=== PATIENT | male | born 1945 | race Caucasian/White ===

== ENCOUNTER 2023-01-23 22:11 | Emergency (ER) | payer MEDICARE, SELFPAY ==
--- NOTE | ~2023-01-23 | CT_ITS ---
Non-contrast CT scan of the Abdomen and Pelvis Clinical indication: Flank pain, hematuria Technique: 2.5 mm axial scans were obtained through the abdomen and pelvis without intravenous or or al contrast. Dose reduction technique was used on this scan by utilizing automated exposure control a nd iterative reconstruction technique. The dose-length product (DLP) was 522.97 mGy-cm. Findings: Images through the lung bases reveal no abnormalities. There is no evidence of renal or ureteral calculi. The kidneys and the ureters are nondilated. Bilate ral renal cysts are present. The liver, spleen, pancreas, and adrenals appear normal. Calcified gallstone present. There is no aor tic aneurysm. There is no evidence of bowel obstruction. Images through the pelvis were performed. There is no evidence of ascites or lymphadenopathy. Urinary bladder unremarkable. No pelvic mass evident. Impression: Cholelithiasis. No renal, ureteral, or bladder stone. No hydronephrosis. Multiple bilateral renal cysts. Reviewed, dictated and finalized at [facility]. Impression: Cholelithiasis. No renal, ureteral, or bladder stone. No hydronephrosis. Multiple bilateral renal cysts.
[2023-01-23 22:14] VITALS: BP 146/86; PULSE 82; RESP 17; TEMP 37.7; O2SAT 93
[2023-01-23 22:37] LABS: Basophils Percent Auto 0.3 % (0.2-1.2); Eosinophils Absolute Auto 0.1 K/mm3 (0-0.3); Eosinophils Percent Auto 0.6 % (0-4.4); Hematocrit 43.7 % (42.0-52.0); Hemoglobin 14.9 g/dL (14.0-18.0); Immature Granulocyte Absolute 0.03 K/mm3 (0.00-0.031); Immature Granulocyte Percent A 0.3 % (0-0.5); Lymphocytes Absolute Auto 1.05 K/mm3 (0.9-3.2); Lymphocytes Percent Auto 9.7 % (18.3-44.2); Mean Corpuscular HGB Conc 34.1 g/dl (32-36); Mean Corpuscular Hemoglobin 31.2 pg (26-34); Mean Corpuscular Volume 91.4 fl (80-100); Mean Platelet Volume 9.8 fl (7.4-10.4); Monocytes Percent Auto 9.6 % (2.6-8.5); Neutrophils Absolute Auto 8.6 K/mm3 (1.3-6.7); Neutrophils Percent Auto 79.5 % (45.5-73.1); Platelet Count Result 172 k/mm3 (150-375); Red Blood Count 4.78 M/mm3 (4.6-6.20); Red Cell Distribution Width 12.9 % (11.5-14.5); White Blood Count 10.8 K/mm3 (4.5-10.0)
[2023-01-23 22:48] LABS: Alanine Aminotransferase 17 U/L (6-50); Albumin Level 4.5 g/dL (3.5-5.1); Alkaline Phosphatase 95 U/L (38-126); Anion Gap 9 mmol/L (8-16); Aspartate Amino Transferase 40 U/L (17-59); Bilirubin,Total 0.8 mg/dL (0.2-1.3); Blood Urea Nitrogen 24 mg/dL (9-20); Calcium 8.9 mg/dL (8.4-10.2); Carbon Dioxide 29 mmol/L (22-30); Chloride 102 mmol/L (98-107); Estimated CRCL calculation 59 ml/min; Estimated Glomerular Filt Rate > 60; Glucose 107 mg/dL (65-110); Potassium 3.1 mmol/L (3.4-5.0); Sodium 140 mmol/L (137-145)
[2023-01-23 22:55] LABS: Appearance Urine Turbid (Clear); Bacteria Urine 1+ /hpf; Bilirubin Urine 1+ (Negative); Blood Urine 2+ (Negative); Color Urine Red (Yellow); Glucose Urine UA Negative (Negative); Ketones Urine Negative (Negative); Leukocyte Esterase Ur 3+ LEU/UL (Negative); Nitrate Urine Positive (Negative); Non Pathogenic Casts 0-2; Protein Urine 2+ mg/dL (Negative); RBC Urine >100 /hpf (0-2); Specific Grav Ur 1.022 (1.001-1.035); Squamous Epithelial Cell Urine Few /hpf (Few); Urobilinogen Urine 0.2 mg/dL (<2.0); WBC Urine >100 /hpf
[2023-01-23 22:58] LABS: Need Manual Microscopic Reviewed
[2023-01-23 22:59] LABS: Add Urine Microscopic? YES
[2023-01-24 00:46] VITALS: BP 122/79; PULSE 77; RESP 16; O2SAT 95
--- NOTE | 2023-01-24 01:32 | PC.NURSE ---
Pt voided in urinal. Noted to be yellow in color. Pt states he did not have any pain with urination.
--- NOTE | 2023-01-24 02:47 | ED.GENADULT ---
HPI - General Adult General Chief complaint: Urogenital-Male Stated complaint: possible kidney stone Time Seen by Provider: 01/24/23 01:07 History of Present Illness HPI narrative: Patient 77-year-old gentleman who presents emergency department with chief complaint of fever and hematuria. Patient reports that he has history of enlarged prostate but is had a prostatectomy in the patient reports he saw his urologist in the last week and they were planning on doing a CT scan of his pelvis. Patient reports that he started having pain in his flank tonight and started having some blood in his urine the patient states he also spiked a temperature at home and just did not feel well. Related Data Allergies Allergy/AdvReac Type Severity Reaction Status Date / Time latex Allergy Hives Verified 01/23/23 22:12 Review of Systems Review of Systems: A 10 system review of systems was completed on the patient and is negative except for what is stated in the HPI. Nursing and ancillary documentation was reviewed. Exam Narrative: GENERAL: Well-appearing, well-nourished, and in no acute distress. HEAD: Normocephalic, atraumatic. EYES: PERRLA and EOMI. ENT: Nares clear, no rhinorrhea or epistaxis. Mucous membranes moist. NECK: Supple. CHEST: Clear to auscultation. No respiratory distress. HEART: Regular rate and rhythm. No murmur heard. Normal peripheral pulses. ABDOMEN: Soft, nontender, nondistended, normal active bowel sounds. EXTREMITIES: Normal range of motion. No edema. SKIN: Warm, dry, no rash. NEURO: No focal deficits. Alert and oriented x3. PSYCH: Normal mood and affect. Course Vital Signs Vital signs: Vital Signs Temperature 37.7 C H 01/23/23 22:14 Pulse Rate 82 01/23/23 22:14 Respiratory Rate 17 01/23/23 22:14 Blood Pressure 146/86 H 01/23/23 22:14 Pulse Oximetry 93 01/23/23 22:14 Oxygen Delivery Room Air 01/23/23 22:14 Temperature 37.7 C H 01/23/23 22:14 Pulse Rate 77 01/24/23 00:46 Respiratory Rate 16 01/24/23 00:46 Blood Pressure 122/79 01/24/23 00:46 Pulse Oximetry 95 01/24/23 00:46 Oxygen Delivery Room Air 05/18/23 22:14 Medical Decision Making MDM Narrative Medical decision making narrative: Differential diagnosis includes UTI, pyelonephritis, obstructing kidney stone, Laboratory studies were obtained which showed a white blood cell count of 10.8 electrolytes showed a creatinine of 1.1 liver enzymes are within normal limits urinalysis showed greater than 100 RBCs and greater than 100 WBCs and 3+ leukocyte esterase and positive for nitrate. CT scan of the abdomen pelvis without contrast for renal stone protocol showed thickening of the bladder concerning for cystitis. The patient also had multiple bilateral renal cyst no evidence of kidney stone no evidence of hydro ureter. The patient is feeling much better at this time and would like outpatient therapy. Patient be given a dose of Rocephin in the emergency department and will be started on Keflex. Vital Signs Vital Signs: Vital Signs Temperature 37.7 C H 01/23/23 22:14 Pulse Rate 82 01/23/23 22:14 Respiratory Rate 17 01/23/23 22:14 Blood Pressure 146/86 H 01/23/23 22:14 Pulse Oximetry 93 01/23/23 22:14 Oxygen Delivery Room Air 01/23/23 22:14 Temperature 37.7 C H 01/23/23 22:14 Pulse Rate 77 01/24/23 00:46 Respiratory Rate 16 01/24/23 00:46 Blood Pressure 122/79 01/24/23 00:46 Pulse Oximetry 95 01/24/23 00:46 Oxygen Delivery Room Air 01/23/23 22:14 Lab Data 01/23/23 22:31 01/23/23 22:31 Labs: Lab Results 01/23/23 Range/Units 22:31 WBC 10.8 H (4.5-10.0) K/mm3 RBC 4.78 (4.6-6.20) M/mm3 Hgb 14.9 (14.0-18.0) g/dL Hct 43.7 (42.0-52.0) % MCV 91.4 (80-100) fl MCH 31.2 (26-34) pg MCHC 34.1 (32-36) g/dl RDW 12.9 (11.5-14.5) % Plt Count 172 (150-375) k/mm3 MPV 9.8 (7.4-10.4) fl Immature Gr
[2023-01-24 02:52] VITALS: BP 133/94; PULSE 70; RESP 16; O2SAT 97
[2023-01-24 03:41] VITALS: BP 100/60; PULSE 55; RESP 16; O2SAT 99
== END 2023-01-24 03:54 | disposition home or self-care (01) ==
PROVIDERS: Emergency Provider Emergency Medicine
DX: N30.00 Acute cystitis without hematuria (principal); Z90.79 Acquired absence of other genital organ(s); K80.20 Calculus of gallbladder without cholecystitis without obstruction; N28.1 Cyst of kidney, acquired
CPT/HCPCS: 36415; 74176; 80053; 81001; 85025; 87077; 87086; 87186; 96365; 99284; J0696